=== PATIENT | male | born 1990 | race Hispanic/Latino ===

== ENCOUNTER 2017-05-12 20:08 | Emergency (ER) | payer OTHER ==
[2017-05-12 20:22] VITALS: BP 127/76; PULSE 70; RESP 16; TEMP 98.2; O2SAT 99
--- NOTE | 2017-05-12 20:49 | ED PDOC ---
HPI: Wound Care - HPI Time Seen by Provider: 05/12/17 20:28 Chief Complaint (Nursing): Abnormal Skin Integrity Chief Complaint (Provider): finger laceration History Per: Patient History Of Present Illness: 26 y/o male presents with laceration to right hand 3rd digit sustained prior to arrival. Patient states he was cleaning a knife and accidentally cut his finger. Denies numbness/weakness right upper extremity, limitation of movement. Last tetanus vaccine 7 years ago. Past Medical History Reviewed: Historical Data, Nursing Documentation, Vital Signs Vital Signs: Last Vital Signs Temp 98.2 F 05/12/17 20:18 Pulse 70 05/12/17 20:18 Resp 16 05/12/17 20:18 BP 127/76 05/12/17 20:18 Pulse Ox 99 05/12/17 20:18 - Medical History PMH: No Chronic Diseases - Surgical History Surgical History: Tonsillectomy - Family History Family History: States: Unknown Family Hx - Living Arrangements Living Arrangements: Alone - Allergies Allergies/Adverse Reactions: Allergies Allergy/AdvReac Type Severity Reaction Status Date / Time lactase [From Dairy Aid] Allergy RASH Verified 08/05/16 15:48 peanut Allergy RASH Verified 08/05/16 15:48 Review of Systems ROS Statement: Except As Marked, All Systems Reviewed And Found Negative Musculoskeletal: Positive for: Hand Pain (right hand 3rd digit laceration) Physical Exam - Reviewed Nursing Documentation Reviewed: Yes Vital Signs Reviewed: Yes - Physical Exam Appears: Positive for: Well, Non-toxic, No Acute Distress Extremity: Positive for: Normal ROM, Capillary Refill (<2 sec b/l UE), Other ( 0.5cm superficial laceration dorsal left hand 3rd digit mid aspect. Wound edges together. No active bleeding, surrounding swelling or tenderness noted. Distal NV, motor intact) Neurologic/Psych: Positive for: Alert, Oriented. Negative for: Motor/Sensory Deficits - ECG O2 Sat by Pulse Oximetry: 99 Procedure: Wound Repair - Time Performed Time Performed: 20:50 - Time Out Time Out: Side verified, Site verified, Patient ID confirmed - Consent Obtained Consent obtained: Verbal - Performed by Performed by: Mid-level Provider - Indications Indication(s):: Laceration - Location Finger:: Right, Middle Shape:: Linear Dimensions Length cm: 0.5cm Dimensions width cm: 0.2cm Depth:: Epidermis - Debris Debris:: None - Irrigated Irrigated with ml of normal saline: 150mL - Wound repair method Welch:: Tissue glue, Steri-strips - Muscle repiar layer closed with Muscle repair layer closed with:: Dressing applied, Tetanus up to date (patient offered tetanus but declines at this time) - Patient tolerated procedure Patient Tolerated Procedure:: Well Medical Decision Making Medical Decision Making: Patient educated on wound care, discharged with instructions to follow up PMD 2- 3 days. Return to ED for worsening/concerning symptoms. Disposition - Clinical Impression Clinical Impression: Finger laceration - Patient ED Disposition Is Patient to be Admitted: No Counseled Patient/Family Regarding: Diagnosis, Need For Followup - Disposition Disposition: Routine/Home Disposition Time: 21:22 Condition: GOOD Instructions: Laceration (ED), Skin Adhesive Care (ED), Steristrips (ED)
== END 2017-05-12 21:30 | disposition home or self-care (01) ==
LOC: H.ER 20:08
DX: S61.212A Laceration without foreign body of right middle finger without damage to nail, initial encounter (principal); W26.0XXA Contact with knife, initial encounter; Y93.G1 Activity, food preparation and clean up

== ENCOUNTER 2017-11-14 20:49 | Emergency (ER) | payer OTHER ==
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
[2017-11-15] MEDS ORDERED: Amoxicillin-Clav 875-125 mg Tab PO STA (00:12)
[2017-11-15 00:36] VITALS: BP 154/77; PULSE 77; RESP 16; TEMP 97.8
[2017-11-15 00:38] VITALS: O2SAT 99
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
== END 2017-11-15 00:45 | disposition home or self-care (01) ==
LOC: H.ER 20:49
DX: S09.90XA Unspecified injury of head, initial encounter (principal); S02.30XA Fracture of orbital floor, unspecified side, initial encounter for closed fracture; W22.8XXA Striking against or struck by other objects, initial encounter; Y92.89 Other specified places as the place of occurrence of the external cause